=== PATIENT | female | born 1975 | race Caucasian/White ===

== ENCOUNTER 2016-10-16 18:38 | Inpatient (IN) | payer BC ==
[~2016-10-16] VITALS: Ht 170.2 cm; Wt 91.5 kg
[~2016-10-16 18:38] MED LIST: IBUP200C42 PO; PYRI60TA PO
--- OUTSIDE RECORDS SUMMARY | 2016-10-16 18:42 | XMS REPORT ---
Author Author Emmanuel Lamar [facility] Address [address], [place] [id number] Care Team Providers Care Knitter Helper Name Role Phone Emmanuel Lamar Unavailable [phone] PROBLEMS Type Condition ICD9-CM Code IDA54-PB Code Onset Dates Condition Status SNOMED Code Problem Encounter for routine checking of intrauterine contraceptive device Z30.431 Active [id number] Assessment Encounter for routine checking of intrauterine contraceptive device Z30.431 December, Active [id number] ALLERGIES Substance Reaction Event Type Date Status Tetracycline HCl stomach upset Drug Allergy December, Active Penicillin V Potassium hives Drug Allergy December, Active Hydrocodone-Acetaminophen itching Drug Allergy December, Active Erythromycin stomach upset Drug Allergy December, Active SOCIAL HISTORY No smoking Hx information available PLAN OF CARE VITAL SIGNS Height 5 ft 6 in in 2015-12-15 Weight 185 lbs 2015-12-15 BMI 29.86 kg/m2 2015-12-15 Blood pressure systolic 100 mm Hg 2015-12-15 Blood pressure diastolic 62 mm Hg 2015-12-15 MEDICATIONS Medication Instructions Dosage Frequency Start Date End Date Duration Status Diclofenac Sodium 100 MG Orally Once a day 1 tablet 24h Active Mirena 20 MCG/24HR Intrauterine every 5 years as directed Nov, as needed Active Mestinon 60 MG Orally five times a day as needed 1 Tablet Active Tylenol Extra Strength 500 MG Orally every 6 hrs 1 tablet as needed 6h Active Multivitamins Orally once a day 1 tablet 24h Active Ibuprofen 200 MG Orally every 6 hrs 4 tablet as needed 6h Active RESULTS No Results PROCEDURES Procedure Date Ordered Related Diagnosis Body Site Office Visit, Est Pt., Level 2 December 15, 2015 IMMUNIZATIONS No Known Immunizations
--- OUTSIDE RECORDS SUMMARY | 2016-10-16 18:42 | XMS REPORT | Continuity of Care Document ---
Author Author [facility] Organization [facility] Address Unknown Phone Unavailable Care Team Providers Care Supervisor Cell Operation Name Role Phone Primary Care Physician Unavailable Source Comments Some departments are not documenting in the electronic medical record. If you do not see the information that you expected, contact Release of Information in the Health Information Management department at [phone] for further assistance in locating additional records.[facility] Active Allergies and Adverse Reactions Not on File Current Medications Not on file Active Problems Not on file Social History Tobacco Use Types Packs/Day Years Used Date Never Assessed Plan of Care Date Type Specialty Providers Description 01/09/2017 Appointment Neurology Chris Cotton MD [address] [place] [address] [phone] (Fax) 01/09/2017 Appointment Neurology Chris Cotton MD [address] [place] [address] [phone] (Fax) Health Maintenance Due Date Last Done Comments Physical (Comprehensive) 1980 Exam Pertussis Vaccine 1984 Tetanus Vaccine 1990 Cervical Cancer Screening 1994 Breast Cancer Screening 2013 Influenza Vaccine 04/04/2016 Results from Last 3 Months Not on file
--- OUTSIDE RECORDS SUMMARY | 2016-10-16 18:42 | XMS REPORT ---
Author Emmanuel Jaime Organization [employer] Address Unknown Phone Unavailable Care Team Providers Care Software Quality Automation Engineer Name Role Phone Emmanuel Lamar Unavailable Allergies No Known Allergies Problems Problem Type Condition Code Onset Dates Condition Status Problem Encounter for routine checking of intrauterine contraceptive device Z30.431 Active Medications Medication Code System Code Instructions Start Date End Date Status Dosage Terazol 7 [facility] [address]-02 0.4 % Vaginal Once a day December 04, 2015 December 11, 2015 1 application at bedtime Results No Known Results Summary Purpose [employer] Submission
--- OUTSIDE RECORDS SUMMARY | 2016-10-16 18:42 | XMS REPORT | Summary of Care ---
Author Author Arnaud Flowers M.D. Organization Unknown Address Unknown Phone Unavailable Care Team Providers Care Cellar Hand Name Role Phone Rafael Flowers M.D. Unavailable Unavailable No Assigned PCP-Pt Confirmed Unavailable Unavailable Unavailable Unavailable Functional Status Name Dates Details Functional status health issues are not documented Status: Name Dates Details Cognitive status health issues are not documented Status: Problems Name Dates Details Myasthenia gravis (358.00, G70.00) Status: Active Medications Name Dates Details Pyridostigmine [place] 60 MG Oral Tablet TAKE ONE TABLET BY MOUTH 4 TIMES DAILY. Quantity: 360 Arnaud Flowers M.D. * Start 29-Nov-2009 Active Diclofenac Sodium 50 MG Oral Tablet Delayed Release * Refills: 0 * Start 30-Nov-2010 Active Multivitamins TABS * Refills: 0 * Start 30-Nov-2010 Active Allergies and Adverse Reactions Name Dates Details Penicillins (Allergy) Status: Active Procedures Procedure Dates Details Myasthenia Gravis Evaluation 170825 Ordered: 16-Aug-2016 CT CHEST WITH IV CONTRAST Ordered: 16-Aug-2016 Immunization Name Dates Details Immunizations not documented Social History Name Dates Details - Status: Name Dates Details Never smoker Vital Signs Date Test Result Details 16-Aug-2016 11:35 BP Systolic 128 mm[Hg] Status: Comments: Location: ; Position: BP Diastolic 62 mm[Hg] Status: Comments: Location: ; Position: Heart Rate 68 /min Status: Comments: Location: ; Weight 199 lb Status: Results Date Description Value Details Results not documented Plan of Care Name Dates Details Planned Observations Planned Goals not documented Planned Encounters Appointment; Provider: Arnaud Flowers M.D. On 15-Aug-2017 11:30 Interventions Provided Medication Changes* Pyridostigmine [place] 60 MG Oral Tablet - Renew Labs/Procedures/Imaging* Myasthenia Gravis Evaluation 741965; To be Done: 16 Aug 2016 Instructions Name Dates Details Instructions not documented Encounters Appointment; Arnaud Flowers M.D. Encounter Diagnosis: Problem not documented On 11-Aug-2015 11:30
--- OUTSIDE RECORDS SUMMARY | 2016-10-16 18:42 | XMS REPORT | Summary of Care ---
Author Author Arnaud Flowers M.D. Organization Unknown Address [address], [place] [id number] Phone Unavailable Care Team Providers Care Preassembler Printed Circuit Board Name Role Phone Lionel Miller, Rafael Unavailable Unavailable No Assigned PCP-Pt Confirmed PP Unavailable Unavailable Unavailable Functional Status Functional Status Health Issues* Name Dates Details Functional status health issues are not documented Status: Cognitive Status Health Issues* Name Dates Details Cognitive status health issues are not documented Status: Problems Name Dates Details Myasthenia gravis (358.00, G70.00) Status: Active Medications Name Dates Details Pyridostigmine [place] 60 MG Oral Tablet TAKE ONE TABLET BY MOUTH 4 TIMES DAILY. Quantity: 360 Arnaud Flowers M.D.* Started 29-Nov-2009 ActiveDiclofenac Sodium 50 MG Oral Tablet Delayed Release * Refills: 0 * Started 30-Nov-2010 ActiveMultivitamins TABS * Refills: 0 * Started 30-Nov-2010 Active Allergies and Adverse Reactions Name Dates Details Penicillins Status: Active Procedures Procedure Dates Details Procedures not documented Immunization Name Dates Details Immunizations not documented Social History Smoking Status* Unknown if ever smoked Vital Signs Date Test Result Details 11-Aug-2015 11:43 BP Systolic 104 mm[Hg] Status: BP Diastolic 64 mm[Hg] Status: Heart Rate 66 /min Status: Weight 201 lb Status: Results Date Description Value Details Results not documented Plan of Care Planned Observations* Name Dates Details Planned Goals not documented Goal Planned Encounters* Appointment; Provider: Arnaud Flowers On 16-Aug-2016 11:30 * Appointment; Provider: Arnaud Flowers On 02-Nov-2008 12:15 Instructions * Instructions not documented Encounters Appointment; Arnaud Flowers Encounter Diagnosis: Problem not documented On 11-Aug-2015 11:30 Appointment; Arnaud Flowers Encounter Diagnosis: Problem not documented On 12-Aug-2014 11:30 Appointment; Arnaud Flowers Encounter Diagnosis: Problem not documented On 13-Aug-2013 11:30
--- OUTSIDE RECORDS SUMMARY | 2016-10-16 18:42 | XMS REPORT | Summary of Care ---
Author Author Arnaud Flowers M.D. Organization Unknown Address [address] [place], [place] [id number] Phone Unavailable Care Team Providers Care Reports Analyst Name Role Phone Rafael Flowers M.D. Unavailable Unavailable Unavailable Unavailable Functional Status Functional Status Health Issues* Name Dates Details Functional status health issues are not documented Status: Cognitive Status Health Issues* Name Dates Details Cognitive status health issues are not documented Status: Problems Name Dates Details Myasthenia gravis (358.00, G70.00) Status: Active Medications Name Dates Details Diclofenac Sodium 50 MG Oral Tablet Delayed Release * Started 30-Nov-2010 ActiveMultivitamins TABS * Refills: 0 * Started 30-Nov-2010 ActivePyridostigmine [place] 60 MG Oral Tablet TAKE ONE TABLET BY MOUTH 4 TIMES DAILY. * Quantity: 360 Refills: 3 Arnaud Flowers M.D.* Started 29-Nov-2009 Active Allergies and Adverse Reactions Name Dates Details Penicillins Status: Active Procedures Procedure Dates Details Procedures not documented Immunization Name Dates Details Immunizations not documented Social History Smoking Status* Unknown if ever smoked Vital Signs Date Test Result Details 12-Aug-2014 11:40 BP Systolic 90 mm[Hg] Status: BP Diastolic 48 mm[Hg] Status: Heart Rate 68 /min Status: Weight 194 lb Status: Results Date Description Value Details Results not documented Plan of Care Planned Observations* Name Dates Details Planned Goals not documented Goal Planned Encounters* Appointment; Provider: Arnaud Flowers On 11-Aug-2015 11:30 * Appointment; Provider: Arnaud Flowers On 02-Nov-2008 12:15 Instructions * Instructions not documented Encounters Appointment; Arnaud Flowers Encounter Diagnosis: Problem not documented On 12-Aug-2014 11:30 Appointment; Arnaud Flowers Encounter Diagnosis: Problem not documented On 13-Aug-2013 11:30
[2016-10-16] MEDS ORDERED: ACET-2321 PO (18:57)
--- NOTE | 2016-10-16 19:06 | NUR ---
PROVIDER DR. NEWBY AT BEDSIDE FOR EXAM.
[2016-10-16] MEDS ORDERED: NORMAL SALINE 1,000 ML IV ONE (19:10)
--- OUTSIDE RECORDS SUMMARY | 2016-10-16 19:12 | XMS REPORT | Continuity of Care Document ---
Author Author [facility] Organization [facility] Address Unknown Phone Unavailable Care Team Providers Care Beam Dyer Recessed Vat Name Role Phone Primary Care Physician Unavailable Source Comments Some departments are not documenting in the electronic medical record. If you do not see the information that you expected, contact Release of Information in the Health Information Management department at [phone] for further assistance in locating additional records.[facility] Active Allergies and Adverse Reactions Not on File Current Medications Not on file Active Problems Not on file Social History Tobacco Use Types Packs/Day Years Used Date Never Assessed Plan of Care Date Type Specialty Providers Description 01/09/2017 Appointment Neurology Chris Cotton MD [address] [place] [address] [phone] (Fax) 01/09/2017 Appointment Neurology Chris Cotton MD [address] [place] [address] [phone] (Fax) Health Maintenance Due Date Last Done Comments Physical (Comprehensive) 1980 Exam Pertussis Vaccine 1984 Tetanus Vaccine 1990 Cervical Cancer Screening 1994 Breast Cancer Screening 2013 Influenza Vaccine 04/04/2016 Results from Last 3 Months Not on file
[2016-10-16] MEDS ORDERED: ONDANSETRON 4mg/2ml INJECTION IV ONE ×2 (19:15→20:30)
[2016-10-16] MEDS ORDERED: MORPHINE SULFATE 4 MG SYRINGE IV ONE (19:15)
[2016-10-16 19:34] LABS: BLOOD, URINE NEGATIVE (NEGATIVE); COLOR,URINE YELLOW (YELLOW); LEUKOCYTE ESTERASE ,URINE NEGATIVE (NEGATIVE); NITRITE,URINE NEGATIVE (NEGATIVE)
[2016-10-16 19:35] LABS: HCT - HEMATOCRIT 46.9 % (36-46); HGB - HEMOGLOBIN 15.8 GM/DL (12-16); MEAN CORPUSCULAR HGB 32.1 UUG (26-34); MEAN CORPUSCULAR HGB CONC(MCHC 33.7 GM/DL (31-37); MEAN CORPUSCULAR VOLUME 95.3 UM3 (80-100); MEAN PLATELET VOLUME 12.7 UM3 (9.4-12.4); RED BLOOD COUNT 4.92 M/MM3 (4.00-5.20); WBC - WHITE BLOOD COUNT 12.6 T/MM3 (4.5-11.0)
[2016-10-16] MEDS ORDERED: IOHEXOL 300 MG/ML 100ml INJECTION ONE (19:41)
[2016-10-16] MEDS ORDERED: NORMAL SALINE 100 ML ONE (19:41)
[2016-10-16] MEDS ORDERED: SALINE FLUSH 10ml SYRINGE ONE (19:41)
[2016-10-16 19:48] LABS: ALBUMIN 4.3 G/DL (3.5-5.0); ALBUMIN/GLOBULIN RATIO 1.3 RATIO (1.1-2.2); ALKALINE PHOSPHATASE 86 U/L (38-126); ALT (SGPT) 268 U/L (9-52); ANION GAP 7 MEQ/L (5-15); AST (SGOT) 346 U/L (14-36); BUN/CREATININE RATIO 18 RATIO (6-26); CALCIUM 8.4 MG/DL (8.4-10.2); CHLORIDE 107 MEQ/L (98-107); CO2 - CARBON DIOXIDE 27 MEQ/L (22-30); GLOMERULAR FILTRATION RATE 61; GLUCOSE 115 MG/DL (65-110); POTASSIUM 3.7 MEQ/L (3.6-5); SODIUM 141 MEQ/L (134-144); TOTAL PROTEIN 7.5 G/DL (6.3-8.2)
--- NOTE | 2016-10-16 19:51 | NUR ---
CT PT TO CT BY CART AT THIS TIME.
[2016-10-16 19:58] LABS: BAND NEUTROPHILS # 0.8 T/MM3; BASOPHILS # (MANUAL) 0.3 T/MM3 (0-0.2); LYMPHOCYTES # (MANUAL) 0.3 T/MM3 (1-4.8); MONOCYTES # (MANUAL) 0.8 T/MM3 (0-0.8); NEUTROPHILS #(MANUAL)-ABSOLUTE 10.6 T/MM3 (1.8-7.7); TOTAL CELLS COUNTED 100 %
--- NOTE | 2016-10-16 20:01 | ERPDOC ---
Departure Disposition Decision Date: Oct 16, 2016 Disposition Decision Time: 20:25 Disposition: 02 TO [facility] Impression Impression Impression: Primary Impression: Acute pancreatitis Pancreatitis type: other Acute pancreatitis complication: no infection or necrosis Qualified Codes: K85.80 - Other acute pancreatitis without necrosis or infection Severity: Severe Condition: Improved Seen By: Physician only Problems/Meds/Labs Reviewed?: Yes Medications reviewed and manag: Yes Follow up care ordered?: Yes Mental Status: Alert, Oriented HPI - Abdominal Pain General Chief Complaint: Nausea,Vomiting,Diarrhea Stated Complaint: ABD PAIN/VOMITING Time Seen by Provider: 18:59 Source: patient, family History/Exam Limitations: no limitations HPI - Abdominal Pain Initial Comments 41yo woman presents to the ER tonight with abdominal pain. Pts sx began 3 days ago, with severe epigastric pain. Pt has not eaten or drank anything since; has not taken her medications. Pain began to subside today, so she had some chicken noodle soup this afternoon. Pts pain immediately returned. She tried to take pepto-bismol for presumed heartburn, but she immediately vomited that up. Pt has a remote h/o cholecystitis with cholectomy. Pain at this time is very similar to what she had with cholecystitis. Occurred At: home Onset: Rapid Duration: other Pain Scale: Now & Worst: 10/10 Quality: aching, sharpness Location: epigastric Radiation: chest, back Activities at Onset: during/after eating Associated Symptoms: diaphoresis, headache, heartburn, nausea/vomiting Hx of Similar Symptoms: Yes Allergies: Coded Allergies: Penicillins (Verified Allergy, Unknown, 10/16/16) tetracycline (Verified Adverse Reaction, Mild, NAUSEA, 10/16/16) Past History Patient Medical History (1) Myasthenia gravis Past Medical History GI: gallbladder disease Surgical History General: appendix, gallbladder Vaccines Hx Influenza Vaccination: No (REFUSED) Hx Pneumococcal Vaccination: No (REFUSED) Review of Systems GI Upper Abdomen: dysphagia, heartburn/indigestion, nausea, pain, vomiting, DENIES : food intolerances, hematemesis All other Systems All Other Systems: Reviewed and Negative Physical Exam General General Nourishment: well nourished, well developed, appears stated age, adult , obese, acute distress General Body Habitus: well groomed Vitals and Pain First Documented Vital Signs Date Time Temp Pulse Resp B/P Pulse Ox O2 Delivery O2 Flow Rate FiO2 10/16/16 18:48 97.7 94 12 112/60 99 Room Air Weight: Kilograms: 90.700 Height (feet): 5 Height (inches): 7.00 Triage Pain Scale: RN VS reviewed by Provider: Yes Normal Exams: Head: Normocephalic w/o trauma Eyes: Pupils are PERRLA w/ EOMI, No scleral icterus, irritation ENMT: No facial trauma, nasal exudates, pharyngeal erythema Neck: Full range of motion, without adenopathy, JVD Lymphatic: No lymphadenopathy Musculoskeletal: No tenderness, or deformity noted Integumentary: No rashes, hives, or bruising noted Neurologic: Patient is alert, and oriented Psychiatric: Patient exhibits, appropriate attention Respiratory (brief) Respiratory: FOUND: clear all [place], equal bilaterally, symmetrical, NOT FOUND : rales, wheezes Cardiovascular (brief) Cardiac: FOUND: regular rate, regular rhythm, NOT FOUND: click, gallop, murmur , pedal edema, peripheral edema, rub Capillary Refill: <2 sec Pulses: all distal extremities, equal, strong Abdomen (brief) Abdominal Brief: FOUND: bowel normo active x4, soft, tender (Exquisitely TTP in epigastrum), NOT FOUND: distended, hepatosplenomegaly, pulsatile mass Differential Diagnoses Considering: Bowel Obstruction, Dehydration, Diverticulitis, Food Poisoning, Gastroenteritis, Hepatitis, Influenza, Ischemic Bowel, Pancreatitis, Pneumonia, UTI Progress Results/Orders Orders Procedure Category Date Status Time Iv Lock (Ed Only) EDM 10/16/16 Transmitted 19:10 Nothing By Mouth (Ed EDM 10/16/16 Transmitted Only) 19:10 Cbc W/Auto LAB 10/16/16 Complete Diff-Reflex Manual 19:10 Cmp - Comprehensive LAB 10/16/16 Complete Metabolic 19:10 Lipase LAB 10/16/16 Complete 19:10 Ua, Dip Wreflex LAB 10/16/16 Complete Microsc & Labor And Delivery Registered Nurse 19:10 Normal Saline (Normal PHA 10/16/16 Complete Saline Iv) 19:10 Morphine Sulfate PHA 10/16/16 Complete (Morphine) 19:15 Ondansetron Inj PHA 10/16/16 Complete (Zofran) 19:15 Ct Abd/Pelvis CT 10/16/16 Taken W/Contrast Only LAB 10/16/16 Complete Qualitative, Urine 19:10 Iohexol (Omnipaque) PHA 10/16/16 Complete 19:41 Normal Saline (Ns) PHA 10/16/16 Complete 19:41 Saline Flush (Iv PHA 10/16/16 Complete Flush) 19:41 Ondansetron Inj PHA 10/16/16 Complete (Zofran) 20:30 Pyridostigmine PHA 10/16/16 Logged (Mestinon) 21:00 Place In Facility: ED ADM 10/16/16 Transmitted Activity As Tolerated SIRI 10/16/16 In Process 20:29 Morphine Sulfate PHA 10/16/16 In Process (Morphine) 20:30 Ondansetron Inj PHA 10/16/16 In Process (Zofran) 20:30 Measure Vital Signs SIRI 10/16/16 Complete 20:29 Compression Type Scd/ SIRI 10/16/16 In Process Clifford Hose 20:29 Lab Results Laboratory Tests Test 10/16/16 19:21 10/16/16 19:28 Urine Collection Type Cleancatch-midstream Urine Color Yellow Urine Turbidity Clear Urine pH 5.5 Urine Specific [place] >=1.030 Urine Protein Trace Urine Glucose (UA) Negative Urine Ketones 1+ Urine Blood Negative Urine Nitrite Negative Urine Bilirubin 1+ Urine Urobilinogen 2.0EU/DL Urine Leukocyte Esterase Negative Urinalysis Comment Microscopic not ind. Urine Test Negative White Blood Count 12.6T/MM3 Red Blood Count 4.92M/MM3 Hemoglobin 15.8GM/DL Hematocrit 46.9% Mean Corpuscular Volume 95.3UM3 Mean Corpuscular Hemoglobin 32.1UUG Mean Corpuscular Hemoglobin Concent 33.7GM/DL RDW Standard Deviation 42.7FL Platelet Count 139T/MM3 Mean Platelet Volume 12.7UM3 Immature Granulocyte % (Auto) % Neutrophils (%) (Auto) % Lymphocytes (%) (Auto) % Monocytes (%) (Auto) % Eosinophils (%) (Auto) % Basophils (%) (Auto) % Absolute Immature Granulocyte (auto T/MM3 Absolute Neutrophils (auto) T/MM3 Absolute Lymphocytes (auto) T/MM3 Absolute Monocytes (auto) T/MM3 Absolute Eosinophils (auto) T/MM3 Absolute Basophils (auto) T/MM3 Neutrophils % (Manual) 84.0% Band Neutrophils % 6.0% Lymphocytes % (Manual) 2.0% Monocytes % (Manual) 6.0% Basophils % (Manual) 2.0% Absolute Neutrophils (Manual) 10.6T/MM3 Band Neutrophils # 0.8T/MM3 Lymphocytes # (Manual) 0.3T/MM3 Monocytes # (Manual) 0.8T/MM3 Basophils # (Manual) 0.3T/MM3 Red Cell Morphology Comment Normal Turbidity < 20 Sodium Level 141MEQ/L Potassium Level 3.7MEQ/L Chloride Level 107MEQ/L Carbon Dioxide Level 27MEQ/L Anion Gap 7MEQ/L Blood Urea Nitrogen 18.0MG/DL Creatinine 1.0MG/DL Glomerular Filtration Rate Calc 61 BUN/Creatinine Ratio 18RATIO Glucose Level 115MG/DL Calculated Osmolality 274MOSM/KG Calcium Level 8.4MG/DL Total Bilirubin 1.60MG/DL Icterus Index < 2 Aspartate Amino Transf (AST/SGOT) 346U/L Alanine Aminotransferase (ALT/SGPT) 268U/L Alkaline Phosphatase 86U/L Total Protein 7.5G/DL Albumin 4.3G/DL Globulin 3.2G/DL Albumin/Globulin Ratio 1.3RATIO Lipase 334U/L Chemistry Specimen Hemolysis < 15 Medications Current ED Medications Sodium Chloride (Normal Saline IV) 1,000 ml @ 0 mls/hr Q0M ONCE IV Last administered on 10/16/16 20:06; Start 10/16/16 at 19:10; Stop 10/16/16 at 19:14 ; Status DC Morphine Sulfate (Morphine) 4 mg O ONCE IV Last administered on 10/16/16 20: 09; Start 10/16/16 at 19:15; Stop 10/16/16 at 19:16; Status DC Ondansetron HCl (Zofran) 4 mg O ONCE IV Last administered on 10/16/16 20:07; Start 10/16/16 at 19:15; Stop 10/16/16 at 19:16; Status DC Iohexol 1 bottle 1 bottle STK-MED ONCE .ROUTE ; Start 10/16/16 at 19:41; Stop at 19:42; Status DC Sodium Chloride (NS) 100 ml @ As Directed STK-MED ONCE .ROUTE ; Start 10/16/16 at 19:41; Stop 10/16/16 at 19:42; Status DC Sodium Chloride (Iv Flush) 10 ml STK-MED ONCE .ROUTE ; Start 10/16/16 at 19:41; Stop 10/16/16 at 19:42; Status DC Ondansetron HCl 4 mg 4 mg O ONCE IV Last administered on 10/16/16t 20:52; Start 10/16/16 at 20:30; Stop 10/16/16 at 20:31; Status DC Sodium Chloride (Normal Saline IV) 1,000 ml @ 100 mls/hr Q10H IV ; Start at 20:29; Status Cancel Morphine Sulfate (Morphine) 2 mg Q2H PRN IV PAIN; Start 10/16/16 at 20:30 Ondansetron HCl (Zofran) 4 mg Q6H PRN IV NAUSEA &/OR VOMITING; Start 10/16/16 at 20:30 Progress Progress Pt with good hx for pancreatitis, and with mild bump in lipase. Will contact hospitalist to admit for pain control and NPO. Consult/PCP Consult/PCP : Physician Contacted: Jose Hinds Time Called: 20:24 Time of first response: 20:26 Type of discussion: Admit Discussion/PCP Discussion Details Will admit LISANDRA NEWBY DO Oct 16, 2016 20:01
--- NOTE | 2016-10-16 20:04 | NUR ---
RETURN PT RETURNED FROM CT BY CART AT THIS TIME.
--- NOTE | 2016-10-16 20:05 | NUR ---
arrival to unit patient arrived via w/c, received report from TAL Garcia. patient reports pain 5/10 and nauseated. positioned for comfort. will continue to monitor.
[2016-10-16 20:15] LABS: LIPASE 334 U/L (23-300)
[2016-10-16] MEDS ORDERED: NORMAL SALINE 1,000 ML IV SCH (20:29)
[2016-10-16] MEDS ORDERED: MORPHINE SULFATE 2 MG SYRINGE IV PRN (20:30)
[2016-10-16] MEDS ORDERED: ONDANSETRON 4mg/2ml INJECTION IV PRN ×2 (20:30→20:45)
--- OUTSIDE RECORDS SUMMARY | 2016-10-16 20:42 | XMS REPORT | Continuity of Care Document ---
Author Author [facility] Organization [facility] Address Unknown Phone Unavailable Care Team Providers Care Office Clerk Assistant Name Role Phone Primary Care Physician Unavailable Source Comments Some departments are not documenting in the electronic medical record. If you do not see the information that you expected, contact Release of Information in the Health Information Management department at [phone] for further assistance in locating additional records.[facility] Active Allergies and Adverse Reactions Not on File Current Medications Not on file Active Problems Not on file Social History Tobacco Use Types Packs/Day Years Used Date Never Assessed Plan of Care Date Type Specialty Providers Description 01/09/2017 Appointment Neurology Chris Cotton MD [address] [place] [address] [phone] (Fax) 01/09/2017 Appointment Neurology Chris Cotton MD [address] [place] [address] [phone] (Fax) Health Maintenance Due Date Last Done Comments Physical (Comprehensive) 1980 Exam Pertussis Vaccine 1984 Tetanus Vaccine 1990 Cervical Cancer Screening 1994 Breast Cancer Screening 2013 Influenza Vaccine 04/04/2016 Results from Last 3 Months Not on file
[2016-10-16] MEDS ORDERED: MORPHINE SULFATE 4 MG SYRINGE IV PRN (20:45)
--- NOTE | 2016-10-16 20:45 | NUR ---
STATUS PT CONTINUES TO REPORT PAIN IS "BETTER" AT 6/10 AND STATES "IT'S NOT THAT BURNING, CRAMPING FEELING ANYMORE, JUST NAUSEA."
--- NOTE | 2016-10-16 20:47 | NUR ---
REPORT CALLED TO [facility] LEE ON MEDICAL UNIT. DENIES QUESTIONS.
--- NOTE | 2016-10-16 21:05 | NUR ---
ADMIT PT TAKEN TO MEDICAL UNIT, RM 137 BY W/C PER THIS RN AT THIS TIME. PT REPORTS PAIN IMPROVED AT 6/10, STILL FEELS NAUSEAOUS. PT TRANSFERS FROM W/C TO BED WITH STANDBY ASSIST.
[2016-10-16] MEDS: LR 1,000 ML IV SCH (21:20)
--- NOTE | 2016-10-16 21:24 | HPPDOC ---
YOLANDA VASQUEZ MD 10/16/160: HPI - Adult Date DATE: 10/16/16 TIME: 21:16 General Chief Complaint: abdominal pain History of Present Illness Please note that the patient was seen via telemedicine on 10/16/2016 with nursing assistance. Ms. Ramirez is a 41yo woman with h/o myasthenia gravis, appy, choly in 1999, class 1 obesity now with 2 days of initial nausea, vomiting and diarrhea with epigastric abdominal pain improved this AM but then worse with PO intake of chicken noodle soup. Pain 8/10 in ED with now 5/10 after morpine and zofran in ED. No CP or ENT symptoms. No SOB. No med changes. No prior pancreatitis. Sick contacts as dental hygenist. No blood in the stool or vomitus. Past Medical History Past Medical History Patient's Medical History: (1) Myasthenia gravis (2) Hx of cholecystectomy (3) Acute pancreatitis Surgical History Patient's Surgical History: choly and appy Current Medications Home Meds Reported Medications Acetaminophen (Tylenol) 325 Mg Tablet, 500 MG PO QID 10/16/16 Pyridostigmine [place] (Mestinon) 60 Mg Tablet, 60 MG PO 5 TIMES A DAY 02/09/10 Allergies: Coded Allergies: Penicillins (Verified Allergy, Unknown, 10/16/16) tetracycline (Verified Adverse Reaction, Mild, NAUSEA, 10/16/16) Family History Family History: father of brain tumor at 49, mother alive with no health problems. no early CAD Social History Substance Use Type: does not use Alcohol Intake: none Marital Status: Sexuality: male partner Housing: house Current Occupational Status: employed Review of Systems Constitutional: REPORTS: see HPI Physical Exam General General Nourishment: well nourished, obese, apparent age, adult General Body Habitus: well groomed Vital Signs Vital Signs Date Time Temp Pulse Resp B/P Pulse Ox O2 Delivery O2 Flow Rate FiO2 10/16/16 20:09 16 10/16/16 18:48 97.7 94 112/60 99 Room Air Height (Feet): 5 Height (Inches): 7.00 Telemetry Rhythm: Sinus Rhythm Eyes Brief: FOUND: EOMI Respiratory Brief: FOUND: clear all [place], equal bilaterally Cardiovascular (brief) Cardiac Brief: FOUND: regular rate, regular rhythm, NOT FOUND: murmur, pedal edema Abdomen (brief) Abdominal Brief: FOUND: BS normo active x4, soft, tender Comments no guarding Integumentary (brief) Integumentary Brief: FOUND: pink Neurologic (brief) Neurological Brief: FOUND: cranial 2-12 intact Neurologic RN Documented GCS Eye Opening: Verbal: Motor: Total: Psychiatric (brief) FOUND: alert, attentive, normal affect, oriented Laboratory Laboratory Tests Test 10/16/16 19:21 10/16/16 19:28 Urine Collection Type Cleancatch-midstream Urine Color Yellow Urine Turbidity Clear Urine pH 5.5 Urine Specific [place] >=1.030 Urine Protein Trace Urine Glucose (UA) Negative Urine Ketones 1+ Urine Blood Negative Urine Nitrite Negative Urine Bilirubin 1+ Urine Urobilinogen 2.0EU/DL Urine Leukocyte Esterase Negative Urinalysis Comment Microscopic not ind. Urine Test Negative White Blood Count 12.6T/MM3 Red Blood Count 4.92M/MM3 Hemoglobin 15.8GM/DL Hematocrit 46.9% Mean Corpuscular Volume 95.3UM3 Mean Corpuscular Hemoglobin 32.1UUG Mean Corpuscular Hemoglobin Concent 33.7GM/DL RDW Standard Deviation 42.7FL Platelet Count 139T/MM3 Mean Platelet Volume 12.7UM3 Immature Granulocyte % (Auto) % Neutrophils (%) (Auto) % Lymphocytes (%) (Auto) % Monocytes (%) (Auto) % Eosinophils (%) (Auto) % Basophils (%) (Auto) % Absolute Immature Granulocyte (auto T/MM3 Absolute Neutrophils (auto) T/MM3 Absolute Lymphocytes (auto) T/MM3 Absolute Monocytes (auto) T/MM3 Absolute Eosinophils (auto) T/MM3 Absolute Basophils (auto) T/MM3 Neutrophils % (Manual) 84.0% Band Neutrophils % 6.0% Lymphocytes % (Manual) 2.0% Monocytes % (Manual) 6.0% Basophils % (Manual) 2.0% Absolute Neutrophils (Manual) 10.6T/MM3 Band Neutrophils # 0.8T/MM3 Lymphocytes # (Manual) 0.3T/MM3 Monocytes # (Manual) 0.8T/MM3 Basophils # (Manual) 0.3T/MM3 Red Cell Morphology Comment Normal Turbidity < 20 Sodium Level 141MEQ/L Potassium Level 3.7MEQ/L Chloride Level 107MEQ/L Carbon Dioxide Level 27MEQ/L Anion Gap 7MEQ/L Blood Urea Nitrogen 18.0MG/DL Creatinine 1.0MG/DL Glomerular Filtration Rate Calc 61 BUN/Creatinine Ratio 18RATIO Glucose Level 115MG/DL Calculated Osmolality 274MOSM/KG Calcium Level 8.4MG/DL Total Bilirubin 1.60MG/DL Icterus Index < 2 Aspartate Amino Transf (AST/SGOT) 346U/L Alanine Aminotransferase (ALT/SGPT) 268U/L Alkaline Phosphatase 86U/L Total Protein 7.5G/DL Albumin 4.3G/DL Globulin 3.2G/DL Albumin/Globulin Ratio 1.3RATIO Lipase 334U/L Chemistry Specimen Hemolysis < 15 Assessment & Plan Problems: (1) Acute pancreatitis Status: Acute Qualifiers: Pancreatitis type: other Acute pancreatitis complication: no infection or necrosis Qualified Codes: K85.80 - Other acute pancreatitis without necrosis or infection Assessment & Plan: Acute pancreatitis uncertain etiology but likely viral with no etoh and h/o choly. Med review with lipid profile, full admit, supportive care with NPO except meds with sips (2) Transaminitis Status: Acute Assessment & Plan: avoid tylenol, ?etiology with B mildlly elevated byt albumin normal. Repeat in the AM after hydration. Consider viral hep panel if not improved, but likely acutely due to pancreatic process. (3) Obesity (BMI 30.0-34.9) Status: Chronic (4) Myasthenia gravis Status: Chronic DVT Prophylaxis: SCD'S Code Status Full Code Hospital Course Summary Disclaimer The hospital course summary below is not to be considered part of the above Progress Note. JER SOLIZ MD 10/17/16 1416: Past Medical History Current Medications Home Meds Reported Medications Acetaminophen (Tylenol) 325 Mg Tablet, 500 MG PO QID 10/16/16 Pyridostigmine [place] (Mestinon) 60 Mg Tablet, 60 MG PO 5 TIMES A DAY 02/09/10 Allergies: Coded Allergies: Penicillins (Verified Allergy, Unknown, 10/16/16) tetracycline (Verified Adverse Reaction, Mild, NAUSEA, 10/16/16) Assessment & Plan Problems: (1) Acute pancreatitis Status: Acute Qualifiers: Pancreatitis type: other Acute pancreatitis complication: no infection or necrosis Qualified Codes: K85.80 - Other acute pancreatitis without necrosis or infection Assessment & Plan: Acute pancreatitis uncertain etiology but likely viral with no etoh and h/o choly. Med review with lipid profile, full admit, supportive care with NPO except meds with sips (2) SIRS without acute organ dysfunction due to non-infectious process Status: Acute Assessment & Plan: Present on admission. SIRS criteria - Leukocytosis, tachycardia. (3) Transaminitis Status: Acute Assessment & Plan: avoid tylenol, ?etiology with B mildlly elevated byt albumin normal. Repeat in the AM after hydration. Consider viral hep panel if not improved, but likely acutely due to pancreatic process. (4) Nausea Status: Acute (5) Abdominal pain Status: Acute Qualifiers: Abdominal location: epigastric Qualified Codes: R10.13 - Epigastric pain (6) Myasthenia gravis Status: Chronic (7) Obesity (BMI 30.0-34.9) Status: Chronic Plan/Intensity of Service Have independently interviewed and examined pt. Chart reviewed. Above note reviewed and concur. CC: Nausea, ab pain HPI: 41 y/o female with MG and Hx Cholecystomy in 1999 present to [facility] for evaluation of ab pain and nausea. Pain onset Friday morning (10/14). Awoke with epigastric pain and severe nausea. No emesis. [place] very similar to when her gallbladder was inflamed in 1999. Had some loose stools. Not around any sick contacts. No trauma or injury. Would feel chills with waves of crampy pain onset. Not able to take her medications since Friday. Oral drive very diminished. By 10/15 thought she felt better, but only able to eat small bits of soups. Not passing loose stools. Pain persistent. Presents to ED for evaluation. Lipase elevated. WBC with elevation. Despite pain and nausea medications in ED, symptoms persisted. Pt has not been using ETOH. PMHx, SHx, FHx, and allergies reviewed an concur. MEDS: Pt take diclofenac daily (could use TID, but once a day in am is all she has been needing recently - last dose 10/13) ROS: Gen: Severe increase of fatigue-very sleepy and tired. HEENT: [place] since ab pain-frontal. No vision or hearing changes. Denies sinus pressure or congestion. PULM: no SOA, cough, congestion, or wheezing. CV: no chest pressure , pain, palpitations. Remainder of 10 point ROS negative. EXAM: GEN: WDWNWF A&O Appears tired and weak. HEENT: NC/AT PERRLA EOMI NECK: supple, midline, no rigidity Lungs: Clear bilaterally. No crackles or wheezes. No distress on RA. AB: soft, nondistended. Mild epigastric pain without rebound or guarding. BS hypoactive. EXT: no edema of upper/lower ext MS: no joint swelling or decreased ROM SKIN: warm and dry, no rashes NEURO: CN II-XII intact. No focal deficits. Psych: alert and oriented. Thoughts linear. Not agitated or restless Lab: reviewed Radiology: reviewed Assessment: as above Plan: Inpatient admission. NPO for bowel rest. IVF to maintain hydration. MS for pain control. Zofran and Phenergan for nausea control. Monitor lab. SCD. Hospital Course Summary Hospital Course Summary 10/15 Inpatient admission for treatment of pancreatitis with SIRS. NPO for bowel rest. IVF to maintain hydration. MS for pain control. Zofran and Phenergan for nausea control. Monitor lab. SCD. YOLANDA VASQUEZ MD Oct 16, 2016 21:20 JER SOLIZ MD Oct 17, 2016 14:16
[2016-10-16 21:25] VITALS: BP 116/69; PULSE 83; RESP 18; TEMP 97.8; O2SAT 100
[2016-10-16 21:27] VITALS: Ht 170.2 cm; Wt 91.5 kg
[2016-10-16] MEDS ORDERED: LORAZEPAM 2 MG/ML INJECTION IV PRN (21:45)
[2016-10-16] MEDS: PROMETHAZINE 25 MG INJECTION IV PRN (21:50)
[2016-10-16] MEDS: PYRIDOSTIGMINE 60 MG TABLET PO SCH (21:50)
[2016-10-16 23:45] VITALS: BP 95/58; PULSE 65; RESP 14; TEMP 98.6; O2SAT 98
[2016-10-17] MEDS: PROMETHAZINE 25 MG INJECTION IV PRN (02:25)
[2016-10-17 04:24] VITALS: BP 96/63; PULSE 68; RESP 16; TEMP 98.4; O2SAT 99
--- NOTE | 2016-10-17 05:07 | NUR ---
summary pt remains on room air. patient states pain has improved, but nausea and cramping still present. prn phenergan given as charted. up ad merrill. vss. no new concerns.
[2016-10-17 05:23] LABS: BASOPHILS % (AUTO) 0.2 % (0-2); EOSINOPHILS % (AUTO) 0.4 % (0-4); HCT - HEMATOCRIT 42.2 % (36-46); HGB - HEMOGLOBIN 14.1 GM/DL (12-16); LYMPHOCYTES # (AUTO) 1.1 T/MM3 (1-4.8); LYMPHOCYTES % (AUTO) 20.2 % (23-45); MEAN CORPUSCULAR HGB 31.8 UUG (26-34); MEAN CORPUSCULAR HGB CONC(MCHC 33.4 GM/DL (31-37); MEAN CORPUSCULAR VOLUME 95.3 UM3 (80-100); MEAN PLATELET VOLUME 13.1 UM3 (9.4-12.4); MONOCYTES # (AUTO) 0.5 T/MM3 (0-0.8); NEUTROPHILS #(AUTO)-ABSOLUTE 3.7 T/MM3 (1.8-7.7); NEUTROPHILS % (AUTO) 70.2 % (33-66); RED BLOOD COUNT 4.43 M/MM3 (4.00-5.20); WBC - WHITE BLOOD COUNT 5.2 T/MM3 (4.5-11.0)
[2016-10-17 05:40] LABS: LDL CHOLESTEROL,CALCULATED 42.4 (66-159); RISK FACTOR 2.7 RATIO (0-4.0); VLDL CHOLESTEROL 12.6 MG/DL (0-28)
[2016-10-17] MEDS: LR 1,000 ML IV SCH ×2 (07:22→17:39)
[2016-10-17 07:23] VITALS: BP 103/65; PULSE 69; RESP 16; TEMP 98.6; O2SAT 97
[2016-10-17] MEDS: PYRIDOSTIGMINE 60 MG TABLET PO SCH ×5 (08:47→21:00)
--- NOTE | 2016-10-17 10:16 | DI ---
Indication: ITS.REASON: epigastric pain CT ABD/PELVIS W/CONTRAST ONLY: Comparison: None Technique: Patient scanned from above the thoracic inlet to below the diaphragms after 100 cc Omni 300 intravenous contrast is used. Dose reduction imaging technology is used with reformatted sagittal and coronal images. Findings: Heart size is within normal limits. Lung bases are clear. Liver is homogeneous in texture and normal in CT appearance. No biliary ductal dilatation noted. The gallbladder has been previously removed. Spleen is unremarkable. Pancreas and both adrenals are unremarkable. Both kidneys excrete the contrast in a similar pattern showing no abnormality. Retroperitoneum is unremarkable. Visualized bowel is unremarkable. Pelvis demonstrates an IUD in place within the uterine cavity. No additional acute pelvic findings were seen. Reformatted imaging shows no acute bony findings in the visualized thoracolumbar spine. Impression: 1. No acute findings currently appreciated. 2. Findings were communicated to ordering ER clinician by the V rad service on a callback basis. .
--- NOTE | 2016-10-17 10:23 | NUR ---
CM CM IN TO VISIT WITH PT. SHE IS ALERT AND ORIENTED. SPOUSE PRESENT. PT DENIES DC NEEDS. SHE PLANS TO RETURN HOME. SHE IS GIVEN CM CONTACT INFORMATION. Addendum: 10/17/16 at 1024 by MAXIMO YU RN Amended: Links added.
[2016-10-17] MEDS: PANTOPRAZOLE 40mg INJECTION IV SCH (10:26)
[2016-10-17 11:51] VITALS: BP 105/64; PULSE 72; RESP 16; TEMP 98.6; O2SAT 97
--- NOTE | 2016-10-17 12:14 | NUR ---
co of abd pain medicated with MS 2 mg sivp. voiding dark kmiberly colored urine. denies susana a tpresent.
--- NOTE | 2016-10-17 14:11 | NUR ---
comfort states ms has helped clear liquids given jello and ice water
[2016-10-17 14:30] LABS: ALBUMIN 3.2 G/DL (3.5-5.0); ALBUMIN/GLOBULIN RATIO 1.3 RATIO (1.1-2.2); ALKALINE PHOSPHATASE 83 U/L (38-126); ALT (SGPT) 325 U/L (9-52); ANION GAP 3 MEQ/L (5-15); AST (SGOT) 214 U/L (14-36); BUN/CREATININE RATIO 13 RATIO (6-26); CALCIUM 7.8 MG/DL (8.4-10.2); CHLORIDE 111 MEQ/L (98-107); CO2 - CARBON DIOXIDE 28 MEQ/L (22-30); GLOMERULAR FILTRATION RATE 61; GLUCOSE 78 MG/DL (65-110); POTASSIUM 3.6 MEQ/L (3.6-5); SODIUM 142 MEQ/L (134-144); TOTAL PROTEIN 5.6 G/DL (6.3-8.2)
[2016-10-17 15:20] VITALS: BP 103/65; PULSE 71; RESP 16; TEMP 98.5; O2SAT 99
--- NOTE | 2016-10-17 17:52 | NUR ---
tolerated broth denies any abd pain at present no n/v reported.
--- NOTE | 2016-10-17 18:23 | NUR ---
medicine states she only takes her Mestonin as needed in the morning and at noon. refused 1800 dose.
--- NOTE | 2016-10-17 18:41 | PNPDOC ---
Subjective Date DATE: 10/17/16 TIME: 18:34 Subjective F/U: Acute pancreatitis, SIRS secondary to pancreatitis. Doing fair this evening. Taken some liquids - notes increase dyspepsia and some nausea with intake. Pain decreased. Really no oral drive. Breathing well. Objective Vital Signs Vital signs Vital Signs Date Time Temp Pulse Resp B/P Pulse Ox O2 Delivery O2 Flow Rate FiO2 10/17/16 15:20 98.5 71 16 103/65 99 Room Air Telemetry Rhythm: Sinus Rhythm Height (Feet): 5 Height (Inches): 7.00 Weight (Kilograms): 94.100 General General Appearance: Alert, Obese, Orientated x 3, Well Nourished, Well Developed, Cooperative, Looks Stated Age Eyes (Brief) Eyes: FOUND: EOMI, PERRL, NOT FOUND: scleral icterus ENMT (Brief) ENMT: FOUND: hearing intact, mucosa moist Neck (Brief) Neck: FOUND: midline, NOT FOUND: nuchal rigidity, spasm Respiratory (Brief) Respiratory: FOUND: clear all [place], equal bilaterally, NOT FOUND: rales, wheezes Cardiovascular (Brief) Cardiac: FOUND: regular rate, regular rhythm, NOT FOUND: pedal edema Abdomen (Brief) Abdominal: FOUND: soft, tender (Mild epigastric ), NOT FOUND: BS normo active x4 (decreased.), distended Extremities (Brief) Extremity : Side: Bilateral Extremity: leg Extremity Finding: NOT FOUND: edema Musculoskeletal (Brief) Musculoskeletal: FOUND: extremities move equally, NOT FOUND: deformity, spasm Integumentary (Brief) Integumentary: FOUND: dry, warm Neurologic (Brief) Neurological: FOUND: cranial 2-12 intact, motor (Intact ) Psychiatric (Brief) Psychiatric: FOUND: alert, attentive, normal affect, oriented Laboratory Laboratory Laboratory Tests 10/16/16 19:28 10/17/16 14:08 Laboratory Tests 10/16/16 19:28 10/17/16 04:28 Assessment & Plan Problems: (1) Acute pancreatitis Status: Acute Qualifiers: Pancreatitis type: other Acute pancreatitis complication: no infection or necrosis Qualified Codes: K85.80 - Other acute pancreatitis without necrosis or infection Assessment & Plan: Acute pancreatitis uncertain etiology but likely viral with no etoh and h/o choly. Med review with lipid profile, full admit, supportive care with NPO except meds with sips (2) SIRS without acute organ dysfunction due to non-infectious process Status: Acute Assessment & Plan: Present on admission. SIRS criteria - Leukocytosis, tachycardia. (3) Transaminitis Status: Acute Assessment & Plan: avoid tylenol, ?etiology with B mildlly elevated byt albumin normal. Repeat in the AM after hydration. Consider viral hep panel if not improved, but likely acutely due to pancreatic process. (4) Nausea Status: Acute (5) Abdominal pain Status: Acute Qualifiers: Abdominal location: epigastric Qualified Codes: R10.13 - Epigastric pain (6) Myasthenia gravis Status: Chronic (7) Obesity (BMI 30.0-34.9) Status: Chronic Plan/Intensity of Service Continue IVF for hydration due to decreased oral drive. IV Protonix started for dyspepsia. Diet advanced to clear liquids. May increase as tolerated. [place] added for pain. Repeat LFT this afternoon showing decreased. Lipase normalized this am. Will continue with care. Recheck CMP in am to monitor liver enzymes and electrolytes. Repeat CBC in am due to resolving SIRS. Check Lipase due to pancreatitis. Case discussed with CM and nursing. DVT Prophylaxis: SCD'S Code Status Full Code Hospital Course Summary Disclaimer The hospital course summary below is not to be considered part of the above Progress Note. Hospital Course Summary 10/16 Inpatient admission for treatment of pancreatitis with SIRS. NPO for bowel rest. IVF to maintain hydration. MS for pain control. Zofran and Phenergan for nausea control. Monitor lab. SCD. 10/17 Doing fair this evening. Taken some liquids - notes increase dyspepsia and some nausea with intake. Pain decreased. Really no oral drive. Breathing well. Continue IVF for hydration due to decreased oral drive. IV Protonix started for dyspepsia. Diet advanced to clear liquids. May increase as tolerated. [place] added for pain. Repeat LFT this afternoon showing decreased. Lipase normalized this am. Will continue with care. Recheck CMP in am to monitor liver enzymes and electrolytes. Repeat CBC in am due to resolving SIRS. Check Lipase due to pancreatitis. JER SOLIZ MD Oct 17, 2016 18:37
[2016-10-17 19:45] VITALS: BP 107/67; PULSE 64; RESP 16; TEMP 98.6; O2SAT 100
[2016-10-17 23:39] VITALS: BP 96/59; PULSE 64; RESP 16; TEMP 98.3; O2SAT 97
[2016-10-18] VITALS (7 sets, daily range): BP systolic 95–103; BP diastolic 61–67; PULSE 58–71; RESP 16; TEMP 97.9–99; O2SAT 97–100
--- NOTE | 2016-10-18 00:51 | NUR ---
Chart Check 24 hour chart check completed
[2016-10-18] MEDS: LR 1,000 ML IV SCH ×2 (04:00→12:35)
--- NOTE | 2016-10-18 05:11 | NUR ---
SUMMARY RESTED THROUGH MOST OF THE NIGHT WITH EYES CLOSED. MEDICATED WITH NORCO FOR UPPER EPIGASTRIC PAIN. UP AD COLIN TO THE BATHROOM. NO COMPLAINTS OF NAUSEA. NO CHANGE IN ASSESSMENT. WILL CONTINUE TO MONITOR.
[2016-10-18 05:38] LABS: BASOPHILS % (AUTO) 0.3 % (0-2); EOSINOPHILS # (AUTO) 0.1 T/MM3 (0-0.5); HCT - HEMATOCRIT 40.8 % (36-46); HGB - HEMOGLOBIN 13.8 GM/DL (12-16); LYMPHOCYTES # (AUTO) 1.1 T/MM3 (1-4.8); MEAN CORPUSCULAR HGB CONC(MCHC 33.8 GM/DL (31-37); MEAN CORPUSCULAR VOLUME 94.7 UM3 (80-100); MEAN PLATELET VOLUME 13.1 UM3 (9.4-12.4); MONOCYTES # (AUTO) 0.5 T/MM3 (0-0.8); MONOCYTES % (AUTO) 11.5 % (0-9.0); NEUTROPHILS #(AUTO)-ABSOLUTE 2.3 T/MM3 (1.8-7.7); NEUTROPHILS % (AUTO) 58.2 % (33-66); RED BLOOD COUNT 4.31 M/MM3 (4.00-5.20)
[2016-10-18 06:07] LABS: ALBUMIN 2.8 G/DL (3.5-5.0); ALBUMIN/GLOBULIN RATIO 1.1 RATIO (1.1-2.2); ALKALINE PHOSPHATASE 140 U/L (38-126); ALT (SGPT) 711 U/L (9-52); ANION GAP 8 MEQ/L (5-15); AST (SGOT) 652 U/L (14-36); BUN/CREATININE RATIO 10 RATIO (6-26); CALCIUM 7.5 MG/DL (8.4-10.2); CHLORIDE 108 MEQ/L (98-107); CO2 - CARBON DIOXIDE 27 MEQ/L (22-30); CREATININE 0.8 MG/DL (0.7-1.2); GLOMERULAR FILTRATION RATE 78; GLUCOSE 79 MG/DL (65-110); LIPASE 220 U/L (23-300); POTASSIUM 3.5 MEQ/L (3.6-5); SODIUM 143 MEQ/L (134-144); TOTAL PROTEIN 5.3 G/DL (6.3-8.2)
[2016-10-18] MEDS ORDERED: ACETAMINOPHEN 500 MG TABLET PO PRN (06:15)
[2016-10-18] MEDS: PANTOPRAZOLE 40mg INJECTION IV SCH (07:58)
[2016-10-18] MEDS: PYRIDOSTIGMINE 60 MG TABLET PO SCH ×5 (07:59→21:00)
--- NOTE | 2016-10-18 14:09 | DI ---
EXAM: US LIVER (HEPATIC) LOCATION OF DICTATION: [facility] [place] COMPARISON: None available. HISTORY: ITS.REASON: elevated lipase and liver enzymes, remote cholecystectomy, FINDINGS: PANCREAS: Unremarkable. What is able to be seen of the head and body of the pancreas appears unremarkable. The tail of the pancreas is not well visualized and is not able to be evaluated. AORTA/IVC: Unremarkable. No evidence for aneurysm. LIVER: Unremarkable. Normal in echotexture, size, and appearance. No intrahepatic ductal dilatation. No lesions are seen. The main portal vein has normal color Doppler flow and direction.15.3 cm in length. GALLBLADDER: Gallbladder surgically absent. CBD: Unremarkable. Normal in caliber. No intra or extrahepatic ductal dilatation. Normal for age. 4.3 mm. RIGHT KIDNEY: Unremarkable. Normal in echotexture, size, appearance, and color Doppler flow without hydronephrosis. 11.9 x 4.4 x 4.8 cm. COMMENTS: None. IMPRESSION: 1. Status post cholecystectomy without intra or intrahepatic ductal dilatation. 2. Otherwise unremarkable exam. Unremarkable appearance to the liver and pancreas. NOTE: The results were discussed with the ordering clinician, SHEYLA URBAN MD on 10/18/2016 2:04 PM. .
[2016-10-18] MEDS ORDERED: OXYCODONE I.R. 5 MG TABLET PO PRN (15:00)
--- NOTE | 2016-10-18 15:04 | PNPDOC ---
Subjective Date DATE: 10/18/16 TIME: 14:53 Subjective History was reviewed with the patient and her . She states symptoms began on Friday evening with nausea and then vomiting and diarrhea. She did not really look at her emesis or diarrhea to see if it was bloody or black. Since then she has had poor appetite and epigastric pain. She also has a mild headache today and some low back pain. She is breathing without difficulties. She was able to drink some broth for lunch and had some toast at breakfast time. She has had no fevers, chills or sweats. She has one and possibly 2 coworkers who has had vomiting and diarrhea. Objective Vital Signs Vital signs Vital Signs Date Time Temp Pulse Resp B/P Pulse Ox O2 Delivery O2 Flow Rate FiO2 10/18/16 12:00 99.0 60 16 96/63 99 Room Air GEN-alert, oriented, no acute distress HEENT-sclera anicteric, oropharynx is moist NECK-supple CV-regular rate and rhythm CHEST-clear to auscultation bilaterally ABD-soft, minimal epigastric tenderness, no rebound, no guarding, normal bowel sounds, nondistended -no [place] EXT-no edema NEURO-no focal deficits SKIN-warm and dry and without rashes Telemetry Rhythm: Sinus Rhythm Height (Feet): 5 Height (Inches): 7.00 Weight (Kilograms): 93.700 Laboratory Laboratory Item Value Date Time Total Bilirubin 1.40 MG/DL H 10/18/16454 Total Bilirubin 1.00 MG/DL 10/17/16 1408 Total Bilirubin 1.60 MG/DL H 10/16/16 1928 Aspartate Amino Transf (AST/SGOT) 652 U/L H # 10/18/16 0455 Aspartate Amino Transf (AST/SGOT) 214 U/L H 10/17/16 1408 Aspartate Amino Transf (AST/SGOT) 346 U/L H 10/16/16 1928 Alanine Aminotransferase (ALT/SGPT) 711 U/L H # 10/18/16 0455 Alanine Aminotransferase (ALT/SGPT) 325 U/L H 10/17/16 1408 Alanine Aminotransferase (ALT/SGPT) 268 U/L H 10/16/16 1928 Alkaline Phosphatase 140 U/L H # 10/18/16 0455 Alkaline Phosphatase 83 U/L 10/17/16 1408 Alkaline Phosphatase 86 U/L 10/16/16 1928 Lipase 220 U/L 10/18/16 0455 Lipase 145 U/L 10/17/16 0428 Lipase 334 U/L H 10/16/16 1928 Triglycerides Level 63 MG/DL 10/17/16 0428 Cholesterol Level 87 MG/DL L 10/17/168 LDL Cholesterol, Calculated 42.4 L 10/17/16427 VLDL Cholesterol 12.6 MG/DL 10/17/16427 HDL Cholesterol Direct 32 MG/DL L 10/17/168 Cholesterol/HDL Ratio 2.7 RATIO 10/17/168 Laboratory Tests 10/16/16 19:28 10/17/16 14:08 10/18/16 04:55 Laboratory Tests 10/16/16 19:28 10/17/16 04:28 10/18/16 04:55 Radiology Liver sonogram shows status post cholecystectomy without intra-or extrahepatic ductal dilatation. Otherwise unremarkable exam. Unremarkable appearance to the liver and pancreas. I did discuss the results with Dr. Benson, radiologist Assessment & Plan Problems: (1) Acute pancreatitis Status: Resolved Qualifiers: Pancreatitis type: other Acute pancreatitis complication: no infection or necrosis Qualified Codes: K85.80 - Other acute pancreatitis without necrosis or infection Assessment & Plan: Acute pancreatitis uncertain etiology but likely viral with no etoh and h/o choly. Med review with lipid profile, full admit, supportive care with NPO except meds with sips (2) SIRS without acute organ dysfunction due to non-infectious process Status: Resolved Assessment & Plan: Present on admission. SIRS criteria - Leukocytosis, tachycardia. (3) Transaminitis Status: Acute Assessment & Plan: avoid tylenol, ?etiology with B mildlly elevated byt albumin normal. Repeat in the AM after hydration. Consider viral hep panel if not improved, but likely acutely due to pancreatic process. (4) Nausea Status: Acute (5) Abdominal pain Status: Acute Qualifiers: Abdominal location: epigastric Qualified Codes: R10.13 - Epigastric pain (6) Myasthenia gravis Status: Chronic Assessment & Plan: Stable (7) Obesity (BMI 30.0-34.9) Status: Chronic Plan/Intensity of Service 10/18/2016 Impression Mild acute Pancreatitis-resolved Sirs-resolved Transaminitis-continued elevation, uncertain etiology. Possibly secondary to a viral gastroenteritis illness. Possible viral gastroenteritis Abdominal pain-improving Myasthenia gravis-stable Mild hypokalemia- Dehydration-resolved Mild leukopenia Mild thrombocytopenia Plan Advance diet as tolerated. Discontinue IV fluids. DC IV Protonix and try oral Pepcid. The patient would like to try eating 1 or 2 bananas for her hypokalemia which is borderline low. Discontinue Tylenol. Try caffeinated beverage to see if this will help with headache. Low-dose oxycodone orally if needed for pain. Check CMV, [place]-Bar[place] virus, hepatitis panel. Recheck CBC and CMP tomorrow. Possible discharge tomorrow if taking oral well and stable off of IV fluids. Questions and concerns of the patient and her were discussed to their apparent satisfaction. DVT Prophylaxis: SCD'S Code Status Full Code Hospital Course Summary Disclaimer The hospital course summary below is not to be considered part of the above Progress Note. Hospital Course Summary 10/16 Inpatient admission for treatment of pancreatitis with SIRS. NPO for bowel rest. IVF to maintain hydration. MS for pain control. Zofran and Phenergan for nausea control. Monitor lab. SCD. 10/17 Doing fair this evening. Taken some liquids - notes increase dyspepsia and some nausea with intake. Pain decreased. Really no oral drive. Breathing well. Continue IVF for hydration due to decreased oral drive. IV Protonix started for dyspepsia. Diet advanced to clear liquids. May increase as tolerated. [place] added for pain. Repeat LFT this afternoon showing decreased. Lipase normalized this am. Will continue with care. Recheck CMP in am to monitor liver enzymes and electrolytes. Repeat CBC in am due to resolving SIRS. Check Lipase due to pancreatitis. Continue IVF for hydration due to decreased oral drive. IV Protonix started for dyspepsia. Diet advanced to clear liquids. May increase as tolerated. [place] added for pain. Repeat LFT this afternoon showing decreased. Lipase normalized this am. Will continue with care. Recheck CMP in am to monitor liver enzymes and electrolytes. Repeat CBC in am due to resolving SIRS. Check Lipase due to pancreatitis. Case discussed with CM and nursing. SHEYLA URBAN MD Oct 18, 2016 14:56
--- NOTE | 2016-10-18 19:00 | NUR ---
SUMMARY: Diet advanced to soft today. Fluids encouraged and taken well. Urine color has gone from dark [place] this morning to very light [place] this evening. IV fluids discontinued this afternoon. [place] was given X 1 this AM for upper abdominal pain. ZOFRAN 4 mg. IV was given X 1 this morning for nausea. Both medications were effective for pain and nausea. MESTONIN given as scheduled today. Up and about in her room independantly.
[2016-10-18] MEDS: FAMOTIDINE 20 MG TABLET PO SCH (22:18)
--- NOTE | 2016-10-18 22:30 | NUR ---
IV Access IV in R forearm infiltrated. Elizabeth Washburn RN, DC'd IV. Dr. Caballero OKed to leave pt without IV access as Pt has no IV medications scheduled and has good PO intake. Pt hopes to go home tomorrow.
[2016-10-19 00:30] VITALS: BP 104/64; PULSE 66; RESP 14; TEMP 98.5; O2SAT 98
--- NOTE | 2016-10-19 03:31 | NUR ---
Status Pt stated she had slight nausea early in evening. Pt denied wanting Zofran at that time. Later in evening pt denied any nausea at all. Up ad merrill in room. Denies pain. Pt refused 2100 pyridostigmine. She stated that she was just going to sleep and did not need it. VSS. Will continue to monitor.
[2016-10-19 04:32] VITALS: BP 82/59; PULSE 86; RESP 18; TEMP 98.5; O2SAT 99
[2016-10-19] MEDS: ONDANSETRON ODT 4 MG TAB PO PRN ×2 (04:35→09:50)
[2016-10-19 04:39] VITALS: BP 117/75
[2016-10-19 05:33] LABS: BASOPHILS % (AUTO) 0.2 % (0-2); EOSINOPHILS # (AUTO) 0.1 T/MM3 (0-0.5); EOSINOPHILS % (AUTO) 1.8 % (0-4); HCT - HEMATOCRIT 43.7 % (36-46); HGB - HEMOGLOBIN 14.8 GM/DL (12-16); IMMATURE GRANULOCYTE # (AUTO) 0.01 T/MM3 (0.00-0.03); IMMATURE GRANULOCYTE % (AUTO) 0.2 % (0.0-0.5); LYMPHOCYTES # (AUTO) 1.1 T/MM3 (1-4.8); MEAN CORPUSCULAR HGB 31.7 UUG (26-34); MEAN CORPUSCULAR HGB CONC(MCHC 33.9 GM/DL (31-37); MEAN CORPUSCULAR VOLUME 93.6 UM3 (80-100); MEAN PLATELET VOLUME 13.7 UM3 (9.4-12.4); MONOCYTES # (AUTO) 0.5 T/MM3 (0-0.8); MONOCYTES % (AUTO) 8.2 % (0-9.0); NEUTROPHILS #(AUTO)-ABSOLUTE 4.2 T/MM3 (1.8-7.7); NEUTROPHILS % (AUTO) 70.6 % (33-66); RED BLOOD COUNT 4.67 M/MM3 (4.00-5.20)
[2016-10-19 05:41] LABS: ALBUMIN 3.7 G/DL (3.5-5.0); ALBUMIN/GLOBULIN RATIO 1.4 RATIO (1.1-2.2); ALKALINE PHOSPHATASE 170 U/L (38-126); ALT (SGPT) 710 U/L (9-52); ANION GAP 10 MEQ/L (5-15); AST (SGOT) 333 U/L (14-36); BUN/CREATININE RATIO 6 RATIO (6-26); CALCIUM 8.3 MG/DL (8.4-10.2); CHLORIDE 107 MEQ/L (98-107); CO2 - CARBON DIOXIDE 27 MEQ/L (22-30); CREATININE 0.9 MG/DL (0.7-1.2); GLOMERULAR FILTRATION RATE 68; GLUCOSE 101 MG/DL (65-110); POTASSIUM 3.6 MEQ/L (3.6-5); SODIUM 144 MEQ/L (134-144); TOTAL PROTEIN 6.4 G/DL (6.3-8.2)
--- NOTE | 2016-10-19 05:47 | NUR ---
Nausea Pt felt sudden urge to have stool and felt nauseated at approx. 0340. Incontinent of loose stool on way to BR. Pt took shower which aggravated nausea. Notified Dr. Hahn who ordered Zofran ODT. Gave Zofran as charted. Pt also complaining of abd pain at 6/10. Gave oxycodone as charted. At this time pt states that if she is remains still pain is controlled. in room during situation. Will continue to monitor.
[2016-10-19 07:51] VITALS: BP 101/63; PULSE 69; RESP 16; TEMP 98.5; O2SAT 97
--- NOTE | 2016-10-19 10:08 | NUR ---
Nausea Patient complains of nausea, zofran given.
--- NOTE | 2016-10-19 10:09 | NUR ---
Status Patient alert and oriented, feeling pretty poor this am. Complains of nausea. Fatigued. Breathing comfortably of RA. Denies needing pain meds, states her abdominal pain is better then yesterday. She doesn't have the stabbing pain.
[2016-10-19 11:11] VITALS: BP 97/63; PULSE 68; RESP 18; TEMP 98.1; O2SAT 97
[2016-10-19] MEDS: FAMOTIDINE 20 MG TABLET PO SCH (11:16)
[2016-10-19] MEDS: PYRIDOSTIGMINE 60 MG TABLET PO SCH ×3 (11:16→14:22)
[2016-10-19 15:14] VITALS: BP 103/69; PULSE 67; RESP 16; TEMP 98.3; O2SAT 100
[2016-10-19] MEDS ORDERED: FAMO20TA8 PO (16:27)
[2016-10-19] MEDS ORDERED: ONDA4TAB10 PO (16:27)
--- NOTE | 2016-10-19 16:43 | DSPDOC ---
General Date Date DATE: 10/19/16 TIME: 16:[address] Elizabeth Urban Admitting Physician Juan Antonio Ritchie MD Consulting Physician Admitting Diagnosis PANCREATITIS Discharge Diagnosis Mild acute pancreatitis Sirs without acute organ dysfunction Transaminitis Mild elevated bilirubin Nausea and vomiting Diarrhea Possible viral gastroenteritis Myasthenia gravis Laboratory Laboratory Tests Test 10/18/16 04:55 10/18/16 15:25 10/19/16 04:36 White Blood Count 4.0T/MM3 (4.5-11.0) 6.0T/MM3 (4.5-11.0) Red Blood Count 4.31M/MM3 (4.00-5.20) 4.67M/MM3 (4.00-5.20) Hemoglobin 13.8GM/DL (12-16) 14.8GM/DL (12-16) Hematocrit 40.8% (36-46) 43.7% (36-46) Mean Corpuscular Volume 94.7UM3 (80-100) 93.6UM3 (80-100) Mean Corpuscular Hemoglobin 32.0UUG (26-34) 31.7UUG (26-34) Mean Corpuscular Hemoglobin Concent 33.8GM/DL (31-37) 33.9GM/DL (31-37) RDW Standard Deviation 41.9FL (36.9-50.2) 41.7FL (36.9-50.2) Platelet Count 118T/MM3 (130-400) 136T/MM3 (130-400) Mean Platelet Volume 13.1UM3 (9.4-12.4) 13.7UM3 (9.4-12.4) Immature Granulocyte % (Auto) 0.0% (0.0-0.5) 0.2% (0.0-0.5) Neutrophils (%) (Auto) 58.2% (33-66) 70.6% (33-66) Lymphocytes (%) (Auto) 28.0% (23-45) 19.0% (23-45) Monocytes (%) (Auto) 11.5% (0-9.0) 8.2% (0-9.0) Eosinophils (%) (Auto) 2.0% (0-4) 1.8% (0-4) Basophils (%) (Auto) 0.3% (0-2) 0.2% (0-2) Absolute Immature Granulocyte (auto 0.00T/MM3 (0.00-0.03) 0.01T/MM3 (0.00-0.03) Absolute Neutrophils (auto) 2.3T/MM3 (1.8-7.7) 4.2T/MM3 (1.8-7.7) Absolute Lymphocytes (auto) 1.1T/MM3 (1-4.8) 1.1T/MM3 (1-4.8) Absolute Monocytes (auto) 0.5T/MM3 (0-0.8) 0.5T/MM3 (0-0.8) Absolute Eosinophils (auto) 0.1T/MM3 (0-0.5) 0.1T/MM3 (0-0.5) Absolute Basophils (auto) 0.0T/MM3 (0-0.2) 0.0T/MM3 (0-0.2) Turbidity < 20 (0-20) < 20 (0-20) Sodium Level 143MEQ/L (134-144) 144MEQ/L (134-144) Potassium Level 3.5MEQ/L (3.6-5) 3.6MEQ/L (3.6-5) Chloride Level 108MEQ/L (98-107) 107MEQ/L (98-107) Carbon Dioxide Level 27MEQ/L (22-30) 27MEQ/L (22-30) Anion Gap 8MEQ/L (5-15) 10MEQ/L (5-15) Blood Urea Nitrogen 8.0MG/DL (7-17) 5.0MG/DL (7-17) Creatinine 0.8MG/DL (0.7-1.2) 0.9MG/DL (0.7-1.2) Glomerular Filtration Rate Calc 78 68 BUN/Creatinine Ratio 10RATIO (6-26) 6RATIO (6-26) Glucose Level 79MG/DL (65-110) 101MG/DL (65-110) Calculated Osmolality 272MOSM/KG (261-280) 274MOSM/KG (261-280) Calcium Level 7.5MG/DL (8.4-10.2) 8.3MG/DL (8.4-10.2) Total Bilirubin 1.40MG/DL (0.20-1.30) 0.90MG/DL (0.20-1.30) Icterus Index < 2 (0-7) < 2 (0-7) Aspartate Amino Transf (AST/SGOT) 652U/L (14-36) 333U/L (14-36) Alanine Aminotransferase (ALT/SGPT) 711U/L (9-52) 710U/L (9-52) Alkaline Phosphatase 140U/L (38-126) 170U/L (38-126) Total Protein 5.3G/DL (6.3-8.2) 6.4G/DL (6.3-8.2) Albumin 2.8G/DL (3.5-5.0) 3.7G/DL (3.5-5.0) Globulin 2.5G/DL (2.4-3.6) 2.7G/DL (2.4-3.6) Albumin/Globulin Ratio 1.1RATIO (1.1-2.2) 1.4RATIO (1.1-2.2) Lipase 220U/L (23-300) Chemistry Specimen Hemolysis < 15 (0-25) < 15 (0-25) Anna-Barrett Virus Interpretation - Radiology [place], [place] [address] Name: DALIA RAMIREZ Unit #: [id number] Signed Page 2 of 2 DIAGNOSTIC IMAGING REPORT Report #: [id number] Dictated By: JAREK CISNEROS MD 10/17/16 1009 Signed date/time: 10/17/16 1012 Transcribed By: TRANSCRIPT RADWARE 10/17/16 1009 cc: JUAN ANTONIO RITCHIE MD [address] [address] [phone] Transcribed By: TRANSCRIPT RADWARE 10/17/[address] ABD/PELVIS W/CONTRAST ONLY: Comparison: None Technique: Patient scanned from above the thoracic inlet to below the diaphragms after 100 cc Omni 300 intravenous contrast is used. Dose reduction imaging technology is used with reformatted sagittal and coronal images. Findings: Heart size is within normal limits. Lung bases are clear. Liver is homogeneous in texture and normal in CT appearance. No biliary ductal dilatation noted. The gallbladder has been previously removed. Spleen is unremarkable. Pancreas and both adrenals are unremarkable. Both kidneys excrete the contrast in a similar pattern showing no abnormality. Retroperitoneum is unremarkable. Visualized bowel is unremarkable. Pelvis demonstrates an IUD in place within the uterine cavity. No additional acute pelvic findings were seen. Reformatted imaging shows no acute bony findings in the visualized thoracolumbar spine. Impression: 1. No acute findings currently appreciated. 2. Findings were communicated to ordering ER clinician by the V rad service on a callback basis. . DATE OF EXAM: 10/18/16 TYPE OF EXAM: US LIVER (HEPATIC) REASON FOR EXAM: elevated lipase and liver enzymes, remote cholecystectomy, EXAM: US LIVER (HEPATIC) LOCATION OF DICTATION: [facility] [place] COMPARISON: None available. HISTORY: ITS.REASON: elevated lipase and liver enzymes, remote cholecystectomy, FINDINGS: PANCREAS: Unremarkable. What is able to be seen of the head and body of the pancreas appears unremarkable. The tail of the pancreas is not well visualized and is not able to be evaluated. AORTA/IVC: Unremarkable. No evidence for aneurysm. LIVER: Unremarkable. Normal in echotexture, size, and appearance. No intrahepatic ductal dilatation. No lesions are seen. The main portal vein has normal color Doppler flow and direction.15.3 cm in length. GALLBLADDER: Gallbladder surgically absent. CBD: Unremarkable. Normal in caliber. No intra or extrahepatic ductal dilatation. Normal for age. 4.3 mm. RIGHT KIDNEY: Unremarkable. Normal in echotexture, size, appearance, and color Doppler flow without hydronephrosis. 11.9 x 4.4 x 4.8 cm. COMMENTS: None. IMPRESSION: 1. Status post cholecystectomy without intra or intrahepatic ductal dilatation. 2. Otherwise unremarkable exam. Unremarkable appearance to the liver and pancreas. History of Present Illness Please note that the patient was seen via telemedicine on 10/16/2016 with nursing assistance. Ms. Ramirez is a 41yo woman with h/o myasthenia gravis, appy, choly in 1999, class 1 obesity now with 2 days of initial nausea, vomiting and diarrhea with epigastric abdominal pain improved this AM but then worse with PO intake of chicken noodle soup. Pain 8/10 in ED with now 5/10 after morpine and zofran in ED. No CP or ENT symptoms. No SOB. No med changes. No prior pancreatitis. Sick contacts as dental hygenist. No blood in the stool or vomitus. Hospital Course 10/16 Inpatient admission for treatment of pancreatitis with SIRS. NPO for bowel rest. IVF to maintain hydration. MS for pain control. Zofran and Phenergan for nausea control. Monitor lab. SCD. 10/17 Doing fair this evening. Taken some liquids - notes increase dyspepsia and some nausea with intake. Pain decreased. Really no oral drive. Breathing well. Continue IVF for hydration due to decreased oral drive. IV Protonix started for dyspepsia. Diet advanced to clear liquids. May increase as tolerated. [place] added for pain. Repeat LFT this afternoon showing decreased. Lipase normalized this am. Will continue with care. Recheck CMP in am to monitor liver enzymes and electrolytes. Repeat CBC in am due to resolving SIRS. Check Lipase due to pancreatitis. Continue IVF for hydration due to decreased oral drive. IV Protonix started for dyspepsia. Diet advanced to clear liquids. May increase as tolerated. [place] added for pain. Repeat LFT this afternoon showing decreased. Lipase normalized this am. Will continue with care. Recheck CMP in am to monitor liver enzymes and electrolytes. Repeat CBC in am due to resolving SIRS. Check Lipase due to pancreatitis. Case discussed with CM and nursing. 10/18/2016 Impression Mild acute Pancreatitis-resolved Sirs-resolved Transaminitis-continued elevation, uncertain etiology. Possibly secondary to a viral gastroenteritis illness. Possible viral gastroenteritis Abdominal pain-improving Myasthenia gravis-stable Mild hypokalemia- Dehydration-resolved Mild leukopenia Mild thrombocytopenia Plan Advance diet as tolerated. Discontinue IV fluids. DC IV Protonix and try oral Pepcid. The patient would like to try eating 1 or 2 bananas for her hypokalemia which is borderline low. Discontinue Tylenol. Try caffeinated beverage to see if this will help with headache. Low-dose oxycodone orally if needed for pain. Check CMV, Anna-Barrett virus, hepatitis panel. Recheck CBC and CMP tomorrow. Possible discharge tomorrow if taking oral well and stable off of IV fluids. Questions and concerns of the patient and her were discussed to their apparent satisfaction. 10/19/2016-Dr. Urban Patient states she's feeling better this afternoon. She did have some diarrhea and vomiting last night. She's been able to eat some bland food and drink fluids well today. She states her urine is slightly up. She did have some sharp right upper quadrant abdominal pain last night, but none now. She has not required any IV medications or IV fluids. Lab today shows AST is down to 333 from 652. ALT is stable at 710. Alkaline phosphatase is 170. Bilirubin is 0.9. Overall liver enzymes are fairly stable to improved. On exam the patient is alert and in no acute distress. Chest clear to auscultation. Cardio vascular reveals a regular rate and rhythm. Abdomen is soft and nontender with good bowel sounds. Extremities are free of edema. Skin is warm and dry and without rashes. The patient, her and I discussed the option of either staying overnight and see how she does and repeat lab tomorrow, versus going home and continuing with bland diet and encouraging fluid intake. She can take Zofran as needed for nausea. She decided she would like to try and go home. I think that is very reasonable. She her were told that if she develops worsening vomiting, uncontrolled or frequent diarrhea, increased abdominal pain, fevers, or in general just feeling worse she should return to the emergency room. She will need follow-up with her primary care provider next week regarding lab work that is pending. She should also have lab work done at that time including a CBC and comp principal metabolic profile. Problems: (1) Acute pancreatitis Status: Resolved Assessment & Plan: Acute pancreatitis uncertain etiology but likely viral with no etoh and h/o choly. Med review with lipid profile, full admit, supportive care with NPO except meds with sips (2) SIRS without acute organ dysfunction due to non-infectious process Status: Resolved Assessment & Plan: Present on admission. SIRS criteria - Leukocytosis, tachycardia. (3) Transaminitis Status: Acute Assessment & Plan: avoid tylenol, ?etiology with B mildlly elevated byt albumin normal. Repeat in the AM after hydration. Consider viral hep panel if not improved, but likely acutely due to pancreatic process. (4) Nausea Status: Acute (5) Abdominal pain Status: Acute (6) Myasthenia gravis Status: Chronic Assessment & Plan: Stable (7) Obesity (BMI 30.0-34.9) Status: Chronic DVT Prophylaxis: SCD'S Code Status Full Code Home Meds Active Scripts Ondansetron (Ondansetron Odt) 4 Mg Tab.rapdis, 4 MG PO Q4H Y for NAUSEA &/OR VOMITING, #10 Prov:ELIZABETH URBAN MD 10/19/16 Famotidine (Famotidine) 20 Mg Tablet, 20 MG PO BID, #10 TAB Prov:ELIZABETH URBAN MD 10/19/16 Reported Medications Pyridostigmine [place] (Mestinon) 60 Mg Tablet, 60 MG PO 5 TIMES A DAY 02/09/10 Discontinued Reported Medications Acetaminophen (Tylenol) 325 Mg Tablet, 500 MG PO QID 10/16/16 Face to Face Encounter I met with patient on the day of dismissal and discussed follow up appointments , medications, and safety plan. Discharge Disposition Dismiss to home in stable condition Copies To 1: GRIFFIN GREGORIO APRN, STEPHANIE L MD Oct 19, 2016 16:33
--- NOTE | 2016-10-19 17:00 | NUR ---
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 Patient and understand discharge orders. Patient wheeled to front entrance.
[2016-10-22 02:32] LABS: HEPATITIS B SURFACE AG - BATCH NEGATIVE (NEGATIVE)
[2016-10-22 02:38] LABS: HEPATITIS A ANTIBODY IGM-BATCH NEGATIVE (NEGATIVE)
[2016-10-22 02:49] LABS: HEPATITIS C VIRUS AB-BATCH NEGATIVE (NEGATIVE)
--- NOTE | 2016-10-22 13:08 | NUR ---
CM THIS CM PLACED FOLLOW UP DISCHARGE CALL TO PATIENT. PATIENT [id number] SHE IS DOING BETTER NOW AND HAS A FOLLOW UP APPOINTMENT IN TWO DAYS WITH HER DOCTOR.
== END 2016-10-19 16:56 | disposition home or self-care (01) | DRG 439 ==
LOC: ED 18:38 → EDHOLD 20:32 → MED 20:32
PROVIDERS: ADMIT Hospitalist; ATTEND Hospitalist
DX: K85.90 Acute pancreatitis without necrosis or infection, unspecified (principal); R65.10 Systemic inflammatory response syndrome (SIRS) of non-infectious origin without acute organ dysfunction; G70.00 Myasthenia gravis without (acute) exacerbation; E66.9 Obesity, unspecified; E86.0 Dehydration; R74.0 Nonspecific elevation of levels of transaminase and lactic acid dehydrogenase [LDH]; A08.4 Viral intestinal infection, unspecified; Z79.899 Other long term (current) drug therapy; Z68.31 Body mass index [BMI] 31.0-31.9, adult
CPT/HCPCS: 36415; 80053; 80061; 80074; 81003; 81025; 83690; 85025; 86645; 86663; 86664; 86665; 86666; 96374; 96375